=== PATIENT | male | born 1975 | race Two or more races ===

== ENCOUNTER 2021-08-08 22:01 | Emergency (ER) | payer MEDICAID, OTHER ==
[~2021-08-08] VITALS: Ht 175.3 cm; Wt 108.9 kg
[2021-08-08] MEDS ORDERED: cloNIDine HCL 0.1 MG TAB PO ONE (22:30)
[2021-08-09 01:34] VITALS: BP 155/96
[2021-08-09] MEDS ORDERED: KETOROLAC TROMETH 60MG/2ML VIAL IM ONE (01:45)
[2021-08-09] MEDS ORDERED: cefTRIAXone SOD 1,000 MG VL IM ONE (01:45)
== END 2021-08-09 02:19 | disposition home or self-care (01) ==
LOC: ER 22:04
DX: S01.502A Unspecified open wound of oral cavity, initial encounter (principal); J03.00 Acute streptococcal tonsillitis, unspecified; R09.81 Nasal congestion; R53.83 Other fatigue; Z88.2 Allergy status to sulfonamides; X58.XXXA Exposure to other specified factors, initial encounter; Y93.89 Activity, other specified; Y92.89 Other specified places as the place of occurrence of the external cause; Y99.8 Other external cause status
CPT/HCPCS: 93005; 96372; 99283; J0696; J1885